=== PATIENT | male | born 1985 | race African-American/Black ===

== ENCOUNTER 2017-01-13 09:33 | Emergency (ER) | END 2017-01-13 12:43 | disposition home or self-care (01) | DX: J45.901 Unspecified asthma with (acute) exacerbation (principal) | CPT/HCPCS: 71010; 94644; 96372; J2930; Z7502; Z7610 ==

== ENCOUNTER 2017-02-03 08:04 | Emergency (ER) | payer MEDICAID ==
[~2017-02-03] VITALS: Ht 180.3 cm; Wt 92.0 kg
[~2017-02-03 08:04] MED LIST: ADV10050 INHALATION; ALBU18HF INHALATION; PRED20TA PO
[2017-02-03 08:07] VITALS: Ht 180.3 cm; Wt 92.0 kg
[2017-02-03] MEDS ORDERED: ALBUTEROL 0.083% (NEB) 2.5 MG/3 ML AMP HHN STA (08:22)
[2017-02-03] MEDS ORDERED: METHYLPREDNISOLONE 125 MG INJ IM ONE (08:30)
[2017-02-03] MEDS ORDERED: IPRATROPIUM (NEB) 0.5 MG/2.5 ML AMP HHN ONE (08:30)
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
--- NOTE | 2017-02-03 08:56 | RADRPT ---
PROCEDURE: XR Chest. CLINICAL INDICATION: chest pain, cough TECHNIQUE: Single frontal view of the chest was obtained COMPARISON: 01/13/2017 FINDINGS: The heart and mediastinum are within normal limits. The lungs are clear. There is no pleural effusion or pneumothorax. RPTAT: AA IMPRESSION: No acute disease. .Miguel A Ayers MD, MD Date Time Electronically viewed and signed by .Miguel A Ayers MD, on 02/03/2017 08:56 .S/
[2017-02-03] MEDS ORDERED: ALBU8.5H3 INH (08:57)
[2017-02-03] MEDS ORDERED: ADV10050 INHALATION (08:59)
== END 2017-02-03 09:45 | disposition home or self-care (01) ==
LOC: FTE 08:04
DX: J45.901 Unspecified asthma with (acute) exacerbation (principal)
CPT/HCPCS: 71010; 94664; J2930; Z7610; 96372